=== PATIENT | female | born 1980 | race Caucasian/White ===

== ENCOUNTER 2018-10-11 18:30 | Emergency (ER) | payer BC ==
[~2018-10-11] VITALS: Ht 160 cm; Wt 50.0 kg
[2018-10-11 18:42] VITALS: Ht 160 cm; Wt 50.0 kg
[2018-10-11 19:41] LABS: BASOPHILS 0.3 % (0-2); EOSINOPHILS 0.8 % (0-7); HEMATOCRIT 45.2 % (36.0-48.0); HEMOGLOBIN 15.4 g/dL (12-16); IMMATURE GRANULOCYTES 0.3 % (0-5); LYMPHOCYTES 32.5 % (15-50); MCH 33.2 pg (26.0-34.0); MCHC 34.1 g/dL (31.0-37.0); MCV 97.4 fL (80.0-100.0); MEAN PLATELET VOLUME 10.5 fL (7.4-10.4); MONOCYTES 6.8 % (2-11); NEUTROPHILS 59.3 % (40-80); PLATELET COUNT 187 10x3/uL (130-400); RBC 4.64 10x6/uL (4.00-5.40); RDW 13.3 % (11.5-14.5); WBC 7.7 10x3/uL (4.8-10.8)
[2018-10-11 20:01] LABS: APPEARANCE CLEAR (CLEAR); BACTERIA MODERATE /hpf (NONE SEEN); BILIRUBIN NEGATIVE (NEGATIVE); COLOR YELLOW (YELLOW); EPITHELIAL CELLS 0-5 /hpf (0-5); GLUCOSE NEGATIVE (NEGATIVE); KETONE NEGATIVE (NEGATIVE); MUCUS <1+ /lpf (NONE SEEN); NITRITE NEGATIVE (NEGATIVE); PROTEIN NEGATIVE (NEGATIVE); RED CELLS - URINE 0-5 /hpf (0-5); SPECIFIC GRAVITY 1.015 (1.005-1.020); UROBILINOGEN NORMAL (NORMAL); WHITE CELLS - URINE OCC /hpf (0-5)
[2018-10-11 20:03] LABS: ALKALINE PHOSPHATASE 58 U/L (46-116); ALT (SGPT) 16 U/L (10-68); AMYLASE - SERUM 50 U/L (25-115); BILIRUBIN - TOTAL 0.67 mg/dL (0.2-1.3); CALC OSMOLALITY 278 mosm/kg (275-300); CALCIUM 9.4 mg/dL (8.5-10.1); CARBON DIOXIDE 24.1 mmol/L (21.0-32.0); CHLORIDE - SERUM 105 mmol/L (98-107); CREATININE - SERUM 0.8 mg/dL (0.6-1.3); GLUCOSE 92 mg/dL (74-106); LIPASE 107 U/L (73-393); PROTEIN - SERUM 7.8 g/dL (6.4-8.2); SODIUM 140 mmol/L (136-145); UREA NITROGEN 12 mg/dL (7-18); eGFR NON AFRICAN AMERICAN 84 mL/min (90-120)
[2018-10-11] MEDS ORDERED: CARAFATE1 G PO (21:19)
[2018-10-11] MEDS ORDERED: MIRALAX17 GM PO (21:19)
[2018-10-11 22:35] VITALS: BP 110/67
== END 2018-10-11 22:35 | disposition home or self-care (01) ==
LOC: D.ER 18:30
PROVIDERS: Emergency Medicine
DX: K59.00 Constipation, unspecified (principal); K56.7 Ileus, unspecified